=== PATIENT | female | born 1970 | race Hispanic/Latino ===

== ENCOUNTER → 2021-05-06 09:21 | Outpatient (CLI) | payer OTHER, SELFPAY ==
--- NOTE | 2021-05-06 | DI.MG.S_ITS ---
BILATERAL DIGITAL DIAGNOSTIC MAMMOGRAM 3D/2D: 05/06/2021 CLINICAL: Pain in breast/left breast lump. Comparison is made to exams dated: 07/04/2018 mammogram, 06/01/2018 mammogram, 06/08/2014 mammogram, and 07/04/2018 ultrasound - out side. There are scattered fibroglandular elements in both breasts. There is a 2.3 cm oval mass in the right breast at 10 o'clock middle depth. This is increased in size. There is a 3 cm mass in the left breast at 7 o'clock middle depth. This is increased in size and correlates as palpated. There also is a 1.1 cm fine heterogeneous calcification in the left breast at 1 o'clock posterior depth. This is increased in number. No other significant masses or calcifications are seen in either breast. IMPRESSION: INCOMPLETE: NEEDS ADDITIONAL IMAGING EVALUATION The 2.3 cm oval mass in the right breast at 10 o'clock middle depth most likely is a cyst and is indeterminate. A targeted ultrasound is recommended and will immediately follow. The 3 cm mass in the left breast at 7 o'clock middle depth most likely is a cyst and is indeterminate. A targeted ultrasound is recommended and will immediately follow. The 1.1 cm fine and coarse heterogeneous calcification in the left breast at 1 o'clock posterior depth is at a moderate suspicion for malignancy. A stereotactic biopsy is recommended. This exam was interpreted at Station ID: [id number]. NOTE: For mammograms, a report in lay terms will be sent to the patient. Approximately 15% of breast malignancies will not be visualized mammographically. In the management of a palpable breast mass, a negative mammogram must not discourage biopsy of a clinically suspicious lesion. Electronically Signed By: Jayson Barros M.D. [facility]/:05/06/2021 10:43:13 ACR BI-RADS Category 0: Incomplete [id number]
--- NOTE | 2021-05-06 09:23 | DI.US.S_ITS ---
LIMITED ULTRASOUND OF RIGHT BREAST: 05/06/2021 CLINICAL: Patient returns today to evaluate an asymmetry in the right breast. Comparison is made to exams dated: 05/06/2021 mammogram - [facility], 07/04/2018 mammogram, 07/04/2018 ultrasound, 06/01/2018 mammogram, 06/13/2014 ultrasound, and 06/08/2014 mammogram - out side. Color flow and real-time ultrasound of the right breast 10 o'clock region were performed. Lambert scale images of the real-time examination were reviewed. There is a benign 2.1 cm x 1.9 cm x 1.1 cm oval cyst in the right breast at 11 o'clock middle depth 3 cm from the nipple. This oval cyst is anechoic with posterior acoustic enhancement. This abnormality is increased in size and correlates with mammography findings. Color flow imaging demonstrates that there is no vascularity present. IMPRESSION: BENIGN There is no sonographic evidence of malignancy. The 2.1 cm oval cyst in the right breast is benign. A 1 year screening mammogram is recommended. Exam findings were discussed with the patient. This exam was interpreted at Station ID: [id number]. Electronically Signed By: Jayson Barros M.D. [facility] [place]/:05/06/2021 11:16:33 Entry: [facility] 05/07/2021 06:25:18 Ultrasound BI-RADS: 2 Benign
--- NOTE | 2021-05-06 09:23 | DI.US.S_ITS ---
LIMITED ULTRASOUND OF LEFT BREAST: 05/06/2021 CLINICAL: Palpable left breast lump. Comparison is made to exams dated: 05/06/2021 mammogram - [facility], 07/04/2018 mammogram, 07/04/2018 ultrasound, 06/01/2018 mammogram, 06/13/2014 ultrasound, and 06/08/2014 mammogram - out side. Color flow and real-time ultrasound of the left breast were performed. Lambert scale images of the real-time examination were reviewed. There is a benign 3.2 cm x 2.9 cm x 2.2 cm oval cyst in the left breast at 6 o'clock middle depth 2 cm from the nipple. This oval cyst is anechoic with a well-defined boundary, a few internal echoes, and posterior acoustic enhancement. This abnormality is increased in size and correlates as palpated, to the reported pain, and with mammography findings. Color flow imaging demonstrates that there is no vascularity present. Of note, calcifications in the left breast meeting criteria for biopsy were noted on same day mammogram. IMPRESSION: SUSPICIOUS OF MALIGNANCY There is no sonographic evidence of malignancy. The 3.2 cm x 2.9 cm x 2.2 cm oval cyst in the left breast most likely is a simple cyst and is benign. -A cyst aspiration for symptomatic relief is recommended. Calcifications were noted on same day mammogram in the left breast. -A stereotactic biopsy is recommended for these calcifications. Exam findings were discussed with the patient by Dr. Barros over the phone. Patient is advised to monitor for significant change. Clinical follow-up as needed. This exam was interpreted at Station ID: [id number]. Electronically Signed By: Jayson Barros M.D. [facility] [place]/:05/06/2021 11:33:42 letter sent: Biopsy Required Ultrasound BI-RADS: 4b Moderate suspicion of malignancy
== END ==
PROVIDERS: PCP Physician Assistant; Referring Provider Physician Assistant; Visit Provider Physician Assistant
DX: R92.8 Other abnormal and inconclusive findings on diagnostic imaging of breast (principal); R92.1 Mammographic calcification found on diagnostic imaging of breast; N60.02 Solitary cyst of left breast; N60.01 Solitary cyst of right breast; N64.4 Mastodynia
CPT/HCPCS: 76642; 77066; G0279

== ENCOUNTER → 2021-08-11 15:57 | Outpatient (CLI) | payer OTHER, SELFPAY ==
[2021-08-11 20:31] LABS: COVID19 -Nasal RAPID Negative (Negative)
== END ==
PROVIDERS: PCP Physician Assistant; Visit Provider Surgery
DX: Z20.822 Contact with and (suspected) exposure to COVID-19 (principal); Z01.812 Encounter for preprocedural laboratory examination
CPT/HCPCS: 87635; C9803

== ENCOUNTER → 2021-08-12 06:38 | Outpatient (CLI) | payer OTHER, SELFPAY | PROVIDERS: PCP Physician Assistant; Referring Provider Surgery; Visit Provider Surgery | DX: N60.92 Unspecified benign mammary dysplasia of left breast (principal) ==

== ENCOUNTER 2021-08-12 06:41 | Day surgery (SDC) | payer OTHER, SELFPAY ==
[2021-08-06 15:20] VITALS: BMI 27.1
[2021-08-12] VITALS (10 sets, daily range): BP systolic 148–179; BP diastolic 84–113; PULSE 64–90; RESP 14–19; TEMP 36.2–36.8; O2SAT 92–98; BMI 27.1
--- NOTE | 2021-08-12 | DI.MG.S_ITS ---
SPECIMEN: 08/12/2021 CLINICAL: Dysplasia. Correlation is made to exams dated: 08/12/2021 localization - [facility], 05/23/2021 specimen, 05/23/2021 stereotactic biopsy - [facility], 05/06/2021 ultrasound, and 05/06/2021 mammogram - [facility]. The submitted specimen includes the stereotactic clip as well as the adjacent calcifications. IMPRESSION: SPECIMEN The specimen contains the stereotactic clip as well as the adjacent calcifications. This exam was interpreted at Station ID: [id number]. Audelia baxter/:08/12/2021 11:34:55
--- NOTE | 2021-08-12 | PATH_ITS ---
[facility] Accession Number: [id number] . 01 Material submitted: . breast - LEFT BREAST . 01 Clinical history: . LEFT LUMPECTOMY W/WIRE LOC . 01 Diagnosis: Left Breast, Lumpectomy with Wire Localization: -Rare focus of atypical lobular hyperplasia; negative for invasive malignancy. -Fibrocystic change, including florid usual ductal hyperplasia, duct dilatation, apocrine metaplasia, sclerosing adenosis, and columnar cell change. -Multifocal benign microcalcifications. -Focal duct ectasia. -Focus of old hemorrhage, pseudoocystic degeneration, and suture granuloma, consistent with previous biopsy site. MRV 08/18/2021 1502 Local . 01 Comment: An *immunostain to e-cadherin is performed on block A12, with the control stained appropriately. The area of interest, which is partially depleted on the immunostained slide, is negative or very weakly positive for e-cadherin, supporting the morphologic suspicion of an atypcial lobular hyperplasia as opposed to ductal proliferation. Telephone Maintainer slides of this case are also reviewed by Dr. Mikala Angela who concurs with the given interpretation. . * This test was developed and its performance characteristics determined by [employer]. It has not been cleared or approved by the U.S. Food and Drug Administration. The FDA has determined that such clearance or approval is not necessary. This test is used for clinical purposes. It should not be regarded as investigational or for research. . 01 Electronically signed: . Marisol Garcia MD, Pathologist NPI- [id number] . 01 Gross description: . Received in formalin and labeled with the patient's name and left breast consists of a 66-gram oriented lumpectomy specimen received inked as follows: anterior green, inferior blue, lateral orange, medial yellow, posterior black, superior red. The specimen measures 10.3 cm SI, 5.5 cm ML, and 3.1 cm AP. The external surface is soft and lobulated with a long suture located in the orange ink, a short suture located in the red ink, and a metal localization wire that enters the specimen in the SI plane. The inking is reinforced, and the specimen is serially sectioned from superior to inferior into 19 slices to reveal predominantly lobular yellow adipose tissue with a small amount of dense fibrous tissue occupying approximately 10% of the cut surface. A dense, heterogeneous, firm area is noted within slices 13-19 with possible areas of a calcification and necrosis. The lesion measures 0.9 cm AP, 2.5 cm ML, and 2.6 cm from SI. The lesion grossly approaches the anterior, medial, and inferior margins, and measures greater than 0.5 cm from all remaining margins. A ribbon biopsy clip is found within slice 19. . Telephone Maintainer sections are submitted as follows: A1: Telephone Maintainer slice 1; superior margin; perpendicular. A2: Telephone Maintainer slice 4; anterior, posterior, lateral margins. A3: Telephone Maintainer slice 11; medial, anterior, and posterior margins. A4: Telephone Maintainer slice 12; anterior margin. A5: Telephone Maintainer slice 13; anterior, posterior, and medial margins. A6-A7: Composite 14; anterior, posterior, medial, lateral, inferior margins. A8: Telephone Maintainer 15; inferior and medial margins. A9: Telephone Maintainer 16; inferior, medial, lateral, and posterior margins. A10-A11: Composite 17; inferior, posterior, and lateral margins. A12-A13: Composite 18, posterior and inferior margins. A14-A16: Entire 19; inferior margin; perpendicular (biopsy site A15). . The specimen was placed in formalin at 11:17 a.m. on 08/12/2021 giving a total fixation time of approximately 33 hours. ([id number]) /MRV 08/13/2021 1230 Local . 01 Pathologist provided ICD-10: N60.99 . 01 CPT . 230061, [id number] Specimen Comment: A courtesy copy of this report has been sent to [phone] Performed at: [address] [facility], [place], [place] [id number] MD Ke Marte MD Phone: [phone]
--- NOTE | 2021-08-12 | DI.MG.S_ITS ---
MULTIPLE NEEDLE LOCALIZATION LEFT BREAST: 08/12/2021 CLINICAL: Atypical ductal hyperplasia. PROCEDURE DESCRIPTION: Kopans needle was advanced from a cranial approach into the region of the left breast calcifications and previously placed clip. Correlation is made to exams dated: 05/23/2021 stereotactic biopsy - [facility], 05/06/2021 ultrasound, 05/06/2021 mammogram - [facility], and 07/04/2018 mammogram - out side. The skin was prepped in the usual manner. A needle was inserted into the targeted area. IMPRESSION: NEEDLE LOCALIZATION Needle localization of the calcifications and stereotactic clip in the left breast. This exam was interpreted at Station ID: [id number]. Audelia baxter/:08/12/2021 09:30:25
[2021-08-12] MEDS: LACTATED RINGERS 1,000 ML 42 ML IV (09:05)
--- NOTE | 2021-08-12 09:20 | PM.HP.1 ---
History of Present Illness History of Present Illness Date Patient Seen: 08/12/21 Time Patient Seen: 09:20 Chief complaint: LEFT LUMPECTOMY W/WIRE LOC Narrative: Pascale is a 50-year-old woman who is here for wire localize left breast lumpectomy for atypical ductal hyperplasia. See the office note from June for details. She had the wire placed this morning. Patient History Surgical History (Updated 08/06/21 @ 15:23 by Elidia Fagan RN) Hx of breast biopsy Family & Social History Social History: household members spouse,children Tobacco & Substance use: Smoking Status Never smoker alcohol intake never Substance Use Type does not use Meds Home Medications and Allergies Home Medications Medication Instructions Recorded Confirmed Type multivitamin 1 tab PO DAILY 06/09/21 08/12/21 History loratadine 10 mg tablet (Claritin) 10 mg PO DAILY 08/12/21 08/12/21 History Allergies Allergy/AdvReac Type Severity Reaction Status Date / Time Sulfa (Sulfonamide Allergy Severe Hives Verified 08/06/21 15:24 Antibiotics) amoxicillin [From Augmentin] Allergy Mild Hives Verified 08/12/21 09:06 clavulanic acid Allergy Mild Hives Verified 08/12/21 09:06 [From Augmentin] latex Allergy Mild Hives, Verified 08/12/21 09:06 itching Exam Vital Signs (past 8 hours): - 08/12/21 07:55 Temperature 97.2 F L Pulse Rate 80 Respiratory Rate 16 Blood Pressure 159/96 H Pulse Oximetry 98 Oxygen Delivery Method Room Air Const General: healthy appearing Resp Effort & Inspection: normal respiratory effort Assessment & Plan Assessment and plan (1) Atypical ductal hyperplasia of left breast: Status: Acute Plan Will plan to proceed with wire localized lumpectomy for atypical ductal hyperplasia. We reviewed the possibilities of finding cancer within the specimen or positive margins which would necessitate additional surgery. She understands and wishes to proceed. COVID-19 COVID-19 status: Negative Result date/Date tested (Pos, Neg/Pending): 08/11/21 Time Spent With Patient Critical Care time: I spent a total of [] minutes of critical care time on this patient's care today; this time is exclusive of procedural time.
--- NOTE | 2021-08-12 10:08 | SUR.OPER ---
Addendum entered by Mercedes James R.N. 08/12/21 10:52: Error - left arm not tucked. Bilateral arms secured on padded arm boards and <90 degrees abduction. Original Note: Supine on padded OR bed, head on pillow, arms secured on padded arm boards at <90 degrees abduction, legs uncrossed, safety belt at thigh, tape over blanket over lower legs, gel pad under bilateral heels. Left arm tucked with gel pad.
[2021-08-12] MEDS: BUPIVACAINE 0.5% W/ EPI (PF) 30 ML VIAL INJ (11:40)
--- NOTE | 2021-08-12 11:47 | PM.OP.1 ---
Operative Date/Time/Diagnoses Date of procedure: 08/12/21 Time of procedure: 11:47 Pre-op diagnosis: Left breast atypical ductal hyperplasia Post-op diagnosis: same Procedure & Clinicians Procedure: Left breast partial mastectomy with wire localization Same procedure as scheduled: Yes Surgeon: Torrey Mathew Operative Notes Procedure in detail: After placement of the wire at radiology the patient was marked in the pre-op area. The patient was brought to the operating room, placed on the table in the supine position, general anesthesia was induced. Arms were abducted on arm boards. The wire was trimmed about 2 cm from the skin. The left breast and axilla were prepped and draped in the usual fashion. A time-out was performed. We made a 10 cm incision just inferior to the wire in the superior left breast about 5 cm above the areola. We created flaps superior and inferior to the incision and then dissected down to the chest wall. An attempt was made to follow the wire but the course of the wire was so long we did come up to the wire anteriorly above the region of interest. We did however seem to be still above the tissue interest. We continue to excise in an inferior direction until we felt the entire specimen was out. There was a short stitch placed at the superior aspect and a long stitch placed at the lateral superior aspect. We then used the paint kit to orient the specimen. The specimen was sent to Radiology for a specimen mammogram. The wound cavity was then irrigated with sterile saline. A few bleeders were cauterized. Additional Marcaine was injected into the pectoral fascia. The wound was closed in layers using multiple interrupted 3-0 Vicryl dermal sutures and a running 4-0 Monocryl subcuticular stitch. Steri-Strips were applied followed by dry gauze and a breast binder. EBL: 25 mL Post-operative Condition: stable Disposition: PACU
[2021-08-12] MEDS: HYDROCODONE/ACET 5/325 TABLET 1 TAB PO (12:16)
[2021-08-12] MEDS: ONDANSETRON 4 MG/2 ML INJ IV (12:16)
--- NOTE | 2021-08-12 12:21 | SUR.PHASEI ---
Patient arousable to verbal stimulation and reports mild pain; denies any numbness or tingling; denies any loss of sensation; able to move left arm.
--- NOTE | 2021-08-12 12:39 | SUR.PHASEI ---
called patient's daughter Rowan and reviewed all discharge instructions. Report given to Maryam, receiving nurse.
== END 2021-08-12 13:21 | disposition home or self-care (01) ==
PROVIDERS: PCP Physician Assistant; Referring Provider Surgery; Visit Provider Surgery
PROC: (CPT 19125; principal; 2021-08-12 10:45)
DX: N60.92 Unspecified benign mammary dysplasia of left breast (principal)
CPT/HCPCS: 19125; 19281; 64450; 76098; C1819; J1100; J1885; J2250; J2405; J2704; J3010